=== PATIENT | female | born 1975 | race Caucasian/White ===

== ENCOUNTER 2016-10-02 09:30 | Emergency (ER) | payer MEDICAID ==
[~2016-10-02] VITALS: Ht 157.5 cm; Wt 58.5 kg
[~2016-10-02 09:30] MED LIST: ACET500C5 PO; AMO500 PO; CLIN-73 PO; HYDR-3498 PO; IBUP-1542 PO; MECL12.574 PO
[2016-10-02 09:32] VITALS: Ht 157.5 cm; Wt 58.5 kg
--- NOTE | 2016-10-02 10:03 | ERD ---
ER Documentation Chief Complaint Date/Time DATE: 10/02/16 TIME: 10:02 Chief Complaint Complains of cough x 9 days HPI 41 year female otherwise healthy was a non-smoker comes emergency room with a dry cough for the past 9 days. She has had a dry persistent cough throughout the day. No fevers, chills. Denies trouble swallowing, voice changes or drooling. Denies hemoptysis. No recent travel. ROS All systems reviewed and are negative except as per history of present illness. Medications Home Meds Active Scripts Benzonatate* (Tessalon Perle*) 100 Mg Capsule, 100 MG PO Q8H Y for COUGH, #30 CAP Prov:JOANN CLINE PA-C 10/02/16 Fluticasone Propionate (Flonase Allergy Relief) 9.9 Ml [place].susp, 1 SPRAY NASAL BID, #1 BOTTLE TO EACH NOSTRIL Prov:JOANN CLINE PA-C 10/02/16 Cetirizine Hcl* (Zyrtec*) 10 Mg Capsule, 10 MG PO DAILY, #10 TAB.CHEW Prov:JOANN CLINE PA-C 10/02/16 Meclizine Hcl* (Antivert*) 12.5 Mg Tab, 12.5 MG PO Q6H Y for DIZZINESS, #20 TAB Prov:TAMI ZEE NP 02/06/16 Acetaminophen* (Tylophen*) 500 Mg Capsule, 1 CAP PO Q6H Y for PAIN AND OR ELEVATED TEMP, #20 CAP Prov:JARRELL STARKEY NP 11/02/15 Ibuprofen* (Motrin*) 600 Mg Tab, 600 MG PO Q6, #14 TAB Prov:CJ OLSON NP 07/13/15 Hydrocodone Bit-Acetaminophen* ([place]*) 5-325 Mg Tab, 1 TAB PO Q6 Y for PAIN, # 7 TAB Prov:CJ OLSON NP 07/13/15 Clindamycin Hcl* (Clindamycin Hcl*) 300 Mg Capsule, 450 MG PO TID for 5 Days, CAP Prov:CJ OLSNO I. FIXING MACHINE OPERATOR 07/13/15 Hydrocodone Bit-Acetaminophen* ([place]*) 5-325 Mg Tab, 1 TAB PO Q6 Y for PAIN, # 7 TAB Prov:TAMI ZEE NP 07/12/15 Amoxicillin* (Amoxicillin*) 500 Mg Cap, 500 MG PO TID for 7 Days, CAP Prov:TAMI ZEE FIXING MACHINE OPERATOR 07/12/15 Allergies Allergies: Coded Allergies: No Known Allergy (Verified , 11/02/15) PMhx/Soc History of Surgery: No (TUBAL LIGATION) Anesthesia Reaction: No Hx Neurological Disorder: No Hx Respiratory Disorders: No Hx Cardiac Disorders: No Hx Psychiatric Problems: No Hx Miscellaneous Medical Probl: No Hx Alcohol Use: No Hx Substance Use: No Hx Tobacco Use: No Smoking Status: Never smoker Physical Exam Vitals Vital Signs Date Time Temp Pulse Resp B/P Pulse Ox O2 Delivery O2 Flow Rate FiO2 10/02/16 09:32 99.0 107 20 119/70 98 Physical Exam General: Well-developed, well-nourished. The patient appears in no acute distress. HEENT: Head is normocephalic, atraumatic. No scleral icterus. Pupils are equal , round, and reactive. Oral mucous membranes are moist. No pharyngeal erythema. External canal has dried blood on the canal, there is no erythema to the to the tympanic membrane, no perforation, otorrhea or discharge, external ears are normal. Neck: Supple. Nontender. Lungs: Clear to auscultation. Normal air movement. Heart: Regular rate and rhythm. S1 and S2 are normal. No murmurs, gallops, or rubs. Abdomen: Nondistended. Extremities: No clubbing or cyanosis. Normal pulses. Moving extremities x 4. No weakness. Neurologic: Alert and oriented 3. No focal deficits. Skin: Normal turgor. No rash or lesions. Results 24 hrs DIAGNOSTIC IMAGING REPORT Patient: FRYOLAN GREY : 1975 Age: 41 Sex: F MR #: [id number] DOS: 10/02/16 0953 Ordering MD: JOANN CLINE PA-C Location: [facility] Room/Bed: PROCEDURE: Chest x-ray CLINICAL INDICATION: Cough TECHNIQUE: Chest single view COMPARISON: None FINDINGS: The heart is normal in size. The pulmonary vessels are normal in caliber. The lungs are clear. The costophrenic angles are sharp. The visualized bony thorax is unremarkable. IMPRESSION: No acute cardiopulmonary disease. RPTAT: HH .Benedicto Huber MD, MD Date Time Electronically viewed and signed by .Benedicto Huber MD, on 10/02/2016 11:08 .W/ CC: JOANN CLINE PA-C Procedures/MDM The patient is a 41-year-old female who comes in with an acute upper respiratory infection, presumed viral. The patient has a differential diagnosis of a viral upper respiratory infection, bacterial upper respiratory infection, bronchitis, pneumonia, pharyngitis, laryngitis, epiglottitis, croup, pneumonia. There is some evidence of bleeding from possibly from a previous trauma in the external canal of the right ear however no evidence of otitis media. Patient has a normal pulmonary examination, clear breath sounds, normal pulse oximetry, with no corrective measures needed at this time. Fluids, rest, antipyretics were encouraged. Departure Diagnosis: Primary Impression: Cough Condition: Good JOANN CLINE PA-C Oct 02, 2016 10:02
--- NOTE | 2016-10-02 11:09 | RADRPT ---
PROCEDURE: Chest x-ray CLINICAL INDICATION: Cough TECHNIQUE: Chest single view COMPARISON: None FINDINGS: The heart is normal in size. The pulmonary vessels are normal in caliber. The lungs are clear. Th e costophrenic angles are sharp. The visualized bony thorax is unremarkable. IMPRESSION: No acute cardiopulmonary disease. RPTAT: HH .Benedicto Huber MD, MD Date Time Electronically viewed and signed by .Benedicto Huber MD, on 10/02/2016 11:08 .W/
[2016-10-02] MEDS ORDERED: FLUT9.9S NASAL (11:15)
[2016-10-02] MEDS ORDERED: CETI10CA PO (11:15)
[2016-10-02] MEDS ORDERED: BENZ100C70 PO (11:15)
== END 2016-10-02 11:22 | disposition home or self-care (01) ==
LOC: FTE 09:30
DX: R05 Cough (principal)
CPT/HCPCS: 71010; Z7502

== ENCOUNTER 2017-07-06 13:18 | Emergency (ER) | END 2017-07-06 15:03 | disposition home or self-care (01) ==

== ENCOUNTER 2017-10-07 23:05 | Emergency (ER) | END 2017-10-08 02:30 | disposition home or self-care (01) ==

== ENCOUNTER 2018-02-09 17:38 | Emergency (ER) | END 2018-02-09 19:59 | disposition home or self-care (01) ==

== ENCOUNTER 2018-03-20 16:23 | Emergency (ER) | END 2018-03-20 18:54 | disposition home or self-care (01) ==

== ENCOUNTER 2018-08-10 23:22 | Emergency (ER) | payer MEDICAID ==
[~2018-08-10] VITALS: Wt 59.3 kg
[~2018-08-10 23:22] MED LIST changes: -AMO500 PO; +AMOX500C2 PO; +ASPI1TAB31 PO; +BENZ-6 PO; +CETI10CA PO; -CLIN-73 PO; +CLIN300C10 PO; +FLUT9.9S NASAL; +IBUP800T48 PO; +TRAM50TA2 PO
[2018-08-11] MEDS ORDERED: KETOROLAC 30 MG INJ IM STA (01:51)
[2018-08-11] MEDS ORDERED: IBUP-1542 PO (03:03)
[2018-08-11] MEDS ORDERED: NAPH30DR3 LEFT EYE (03:03)
[2018-08-11] MEDS ORDERED: ACET-141 PO (03:03)
--- NOTE | 2018-08-11 03:06 | ERD ---
ER Documentation Chief Complaint Chief Complaint headache/left eye redness since yesterday ROS All systems reviewed and are negative except as per history of present illness. Medications Home Meds Active Scripts Acetaminophen* (Acetaminophen*) 500 MG Extra Strength Tablet, 500 MG PO Q4H PRN for PAIN AND OR ELEVATED TEMP, #30 TAB Prov:HERNDONELAINE 08/11/18 Ibuprofen* (Motrin*) 600 Mg Tab, 600 MG PO Q6H PRN for PAIN AND OR ELEVATED TEMP, #30 TAB Prov:ELAINE HERNDON 08/11/18 Naphazoline Hcl* (Clear Eyes Redness Relief* 0.1%) 30 Ml Drops, 2 DROP LEFT EYE Q4H PRN for EYE REDNESS for 7 Days, #1 BOTTLE Prov:ELAINE HERNDON 08/11/18 Ibuprofen* (Motrin*) 800 Mg Tab, 800 MG PO Q6, #30 TAB Prov:LIGIA QUIROS PA-C 03/20/18 Aspirin/Acetaminophen/Caffeine (Excedrin Migraine Caplet) 1 Each Tablet, 1 EACH PO Q6, #30 TAB Prov:LESLEY KINGSLEY PA-C 02/09/18 Ibuprofen* (Motrin*) 600 Mg Tab, 600 MG PO Q6, #30 TAB Prov:KUSH MUNOZ PA-C 10/08/17 Clindamycin Hcl* (Clindamycin Hcl*) 300 Mg Capsule, 300 MG PO TID for 10 Days, CAP Prov:KUSH MUNOZ PA-C 10/08/17 Tramadol HCl (Tramadol HCl) 50 Mg Tablet, 50 MG PO Q4 PRN for PAIN, #20 TAB Prov:BENITO MIKE F 07/06/17 Ibuprofen* (Motrin*) 600 Mg Tab, 600 MG PO Q6H PRN for PAIN AND OR ELEVATED TEM P, #30 TAB Prov:CLAYTONILASARAH PRESCOTTAR F 07/06/17 Benzonatate* (Tessalon Perle*) 100 Mg Capsule, 100 MG PO Q8H PRN for COUGH, #30 CAP Prov:JOANN CLINE PA-C 10/02/16 Fluticasone Propionate (Flonase Allergy Relief) 9.9 Ml [place].susp, 1 SPRAY NASAL BID, #1 BOTTLE TO EACH NOSTRIL Prov:JOANN CLINE PA-C 10/02/16 Cetirizine Hcl* (Zyrtec*) 10 Mg Capsule, 10 MG PO DAILY, #10 TAB.CHEW Prov:JOANN CLINE PA-C 10/02/16 Meclizine Hcl* (Antivert*) 12.5 Mg Tab, 12.5 MG PO Q6H PRN for DIZZINESS, #20 TAB Prov:TAMI ZEE NP 02/06/16 Acetaminophen* (Tylophen*) 500 Mg Capsule, 1 CAP PO Q6H PRN for PAIN AND OR ELEVATED TEMP, #20 CAP Prov:JARRELL STARKEY WINDOWS DESKTOP ENGINEER 11/02/15 Ibuprofen* (Motrin*) 600 Mg Tab, 600 MG PO Q6, #14 TAB Prov:OLSONCJ I. WINDOWS DESKTOP ENGINEER 07/13/15 Hydrocodone Bit-Acetaminophen* ([place]*) 5-325 Mg Tab, 1 TAB PO Q6 PRN for PAIN, #7 TAB Prov:OLSONCJ I. WINDOWS DESKTOP ENGINEER 07/13/15 Clindamycin Hcl* (Clindamycin Hcl*) 300 Mg Capsule, 450 MG PO TID for 5 Days, CAP Prov:OLSONCJ I. WINDOWS DESKTOP ENGINEER 07/13/15 Hydrocodone Bit-Acetaminophen* ([place]*) 5-325 Mg Tab, 1 TAB PO Q6 PRN for PAIN, #7 TAB Prov:TAMI ZEE NP 07/12/15 Amoxicillin* (Amoxicillin*) 500 Mg Cap, 500 MG PO TID for 7 Days, CAP Prov:TAMI ZEE WINDOWS DESKTOP ENGINEER 07/12/15 Allergies Allergies: Coded Allergies: No Known Allergy (Verified , 10/07/17) PMhx/Soc History of Surgery: No (TUBAL LIGATION) Anesthesia Reaction: No Hx Neurological Disorder: No Hx Respiratory Disorders: No Hx Cardiac Disorders: No Hx Psychiatric Problems: No Hx Miscellaneous Medical Probl: No Hx Alcohol Use: No Hx Substance Use: No Hx Tobacco Use: No Smoking Status: Never smoker Physical Exam Vitals Vital Signs Date Temp Pulse Resp B/P (MAP) Pulse Ox O2 O2 Flow FiO2 Time Delivery Rate 08/10/18 97.5 77 18 144/75 99 23:27 (98) Physical Exam Const: No acute distress Head: Atraumatic Eyes: Normal Conjunctiva ENT: Normal External Ears, Nose and Mouth. Neck: Full range of motion. No meningismus. Resp: Clear to auscultation bilaterally Cardio: Regular rate and rhythm, no murmurs Abd: Soft, non tender, non distended. Normal bowel sounds Skin: No petechiae or rashes Back: No midline or flank tenderness Ext: No cyanosis, or edema Neur: Awake and alert Psych: Normal Mood and Affect Results 24 hrs Laboratory Tests Test 08/11/18 02:00 POC Beta HCG, Qualitative NEGATIVE Current Medications Medications Dose Sig/Billie Start Time Status Last (Trade) Ordered Route PRN Stop Time Admin Dose Reason Admin Ketorolac 30 mg ONCE STAT 08/11/18 DC 08/11/18 Tromethamine IM 01:51 08/11/18 02:17 (Toradol) 01:52 Departure Diagnosis: Primary Impression: Headache Headache type: unspecified Headache chronicity pattern: unspecified pattern Intractability: not intractable Qualified Codes: R51 - Headache Additional Impression: Conjunctivitis, left eye Conjunctivitis type: unspecified Qualified Codes: H10.9 - Unspecified conjunctivitis Condition: Fair Patient Instructions: Self-Care for Headaches Referrals: [facility] Additional Instructions: Call your primary care doctor TOMORROW for an appointment during the next 1-2 days.See the doctor sooner or return here if your condition worsens before your appointment time. ELAINE HERNDON DO August 11, 2018 03:06
[2018-08-11 03:12] VITALS: BP 129/81; PULSE 97; RESP 20
== END 2018-08-11 03:10 | disposition home or self-care (01) ==
LOC: FTE 23:22
DX: H10.9 Unspecified conjunctivitis (principal); Z79.82 Long term (current) use of aspirin
CPT/HCPCS: 81025; 96372; J1885; Z7502